=== PATIENT | male | born 1985 | race Caucasian/White ===

== ENCOUNTER 2022-12-09 14:08 | Emergency (ER) | payer SELFPAY ==
[~2022-12-09] VITALS: Ht 185.4 cm; Wt 60.0 kg
[2022-12-09] MEDS ORDERED: OFLOXACIN0.3 % OD (16:26)
[2022-12-09 16:31] VITALS: BP 122/84
== END 2022-12-09 16:36 | disposition home or self-care (01) | DRG 125 ==
LOC: ED 14:08
DX: H10.9 Unspecified conjunctivitis (principal); F17.210 Nicotine dependence, cigarettes, uncomplicated